=== PATIENT | male | born 1950 | race Caucasian/White ===

== ENCOUNTER 2020-05-20 10:55 | Outpatient (NON) | payer MEDICARE, OTHER, SELFPAY ==
[2020-05-23 12:26] LABS: SARS-CoV-2 RNA PCR Positive
== END 2020-05-20 10:56 ==
LOC: ANHCOVIDDT 10:56
PROVIDERS: PCP Family Medicine; Visit Provider Family Medicine
DX: U07.1 COVID-19 (principal)
CPT/HCPCS: 87635; C9803; U0003

== ENCOUNTER 2021-12-10 02:20 | Day surgery (SDC) | payer MEDICARE, SELFPAY ==
[2021-11-26 08:18] VITALS: BMI 27.2
--- NOTE | 2021-12-10 09:06 | WPDANESEPPF ---
Anes - Initial Pre Proc Eval Procedure: Operation Date: 12/10/21 10:30 Proposed Procedures p Screening Colonoscopy - Mikel Miller MD Date/Time: 12/10/21 09:06 Surgeon: Mikel Miller MD Pre Op Diagnosis: neoplasm screening Patient Data Age: 71 Gender: M Height: 1.8 m Weight: 88.6 kg Allergies Allergy/AdvReac Type Severity Reaction Status Date / Time No Known Allergies Allergy Verified 11/26/21 08:26 Home Medications Medication Instructions Recorded Confirmed Type cholecalciferol (vitamin D3) 25 1,000 unit PO DAILY 05/31/19 11/26/21 History mcg (1,000 unit) capsule sildenafil 100 mg tablet 100 mg PO DAILY PRN Erectile 06/26/20 11/26/21 History Dysfunction olmesartan 20 mg tablet See Rx Instructions .Route 09/07/21 11/26/21 Rx .COMPLEX #90 tabs verapamil 240 mg tablet,extended See Rx Instructions .Route 09/07/21 11/26/21 Rx release .COMPLEX #90 tabs Patient hx anesthesia problems: none Family hx anesthesia problems: none Results Review: All pre-operative results and documents have been reviewed as part of the pre-operative evaluation. ON LICENSE OF [facility] Past Medical History Medical History (Updated 12/10/21 @ 09:07 by Raffy López MD) Essential (primary) hypertension Hepatitis C antibody test negative (~08/07/12) History of chicken pox History of measles History of mumps Overweight Rotator cuff tear (~06/06/13) Surgical History Surgical History History of colonoscopy (~04/01/11) Family History Family History Mother , age 70 Diabetes mellitus Hypertension Family history of cardiovascular disease Cerebrovascular accident Family history of coronary artery disease Family history of congestive heart failure Sibling Hypertension Spinal stenosis Father , age 92, CHF Congestive heart failure Sibling , brothers at age 64 and 76, sisters age 81 and 66 Family history of liver disease Lymphoma Son Epilepsy Other Family history of alcoholism Family history of arthritis Social History Social History (Updated 10/03/21 @ 12:00 by Eugenia Dickerson CMA) Smoking packs per day: 1 Smoking cigarettes per day: 20.0 Years smoked: 20 Smoking pack-years: 20.00 Smoking status: Former smoker Tobacco type: cigarettes Second hand tobacco smoke exposure: No Alcohol intake: current Drinks per week: 7 Alcohol use details: one drink daily Substance use: never Substance use type: does not use Living arrangements: with family Gender identity (if verbalized by the patient): Male Spiritual care concerns: No Anes - Eval Final PreProcedure Day of Procedure 12/10/21 09:06 Patient weight: overweight Heart: regular rate and rhythm Lungs: clear to auscultation and normal air movement Airway: Mallampati scale class II Neurological: alert and oriented Last oral intake: >/= 8 hours ASA classification: II Emergent: no Anesthetic plan: proceed Anesthesia type and monitoring: general GIVS Results Review: All pre-operative results and documents have been reviewed as part of the pre-operative evaluation. Informed Consent: The patient's anesthetic plan and its attendant risks and benefits were discussed with the patient/family/POA. Questions were solicited and answers provided to the satisfaction of the patient/family/POA.
[2021-12-10 09:23] VITALS: BP 132/72; PULSE 82; RESP 18; TEMP 36.6; O2SAT 100; BMI 25.2
[2021-12-10] MEDS: LACTATED RINGERS 1,000 ML 150 ML IV CONT (09:32)
--- NOTE | 2021-12-10 09:48 | PM.IMHP ---
H&P: HPI History of Present Illness Date/Time: 12/10/21 09:48 Chief Complaint: History of colon polyp polyps. Narrative: This is a 71-year-old white male patient with a history of adenomatous colon polyp removed from the colon 10 years ago. Patient presents today for surveillance colonoscopy. Patient's current weight appetite and bowel movements are normal. He denies abdominal pain. Patient has had no bleeding. Family history is noncontributory. Patient presents today for neoplasia screening colonoscopy. Review of Systems Review of Systems: Review of systems noncontributory. [facility] Past Medical History Medical History (Updated 12/10/21 @ 09:49 by Mikel Miller MD) Essential (primary) hypertension Hepatitis C antibody test negative (~08/07/12) History of chicken pox History of measles History of mumps Overweight Rotator cuff tear (~06/06/13) Surgical History Surgical History History of colonoscopy (~04/01/11) Family History Family History Mother , age 70 Diabetes mellitus Hypertension Family history of cardiovascular disease Cerebrovascular accident Family history of coronary artery disease Family history of congestive heart failure Sibling Hypertension Spinal stenosis Father , age 92, CHF Congestive heart failure Sibling , brothers at age 64 and 76, sisters age 81 and 66 Family history of liver disease Lymphoma Son Epilepsy Other Family history of alcoholism Family history of arthritis Social History Social History (Updated 10/03/21 @ 12:00 by Eugenia Dickerson CMA) Smoking packs per day: 1 Smoking cigarettes per day: 20.0 Years smoked: 20 Smoking pack-years: 20.00 Smoking status: Former smoker Tobacco type: cigarettes Second hand tobacco smoke exposure: No Alcohol intake: current Drinks per week: 7 Alcohol use details: one drink daily Substance use: never Substance use type: does not use Living arrangements: with family Gender identity (if verbalized by the patient): Male Spiritual care concerns: No Meds Home Medications and Allergies Home Medications Medication Instructions Recorded Confirmed Type cholecalciferol (vitamin D3) 25 1,000 unit PO DAILY 05/31/19 11/26/21 History mcg (1,000 unit) capsule sildenafil 100 mg tablet 100 mg PO DAILY PRN Erectile 06/26/20 11/26/21 History Dysfunction olmesartan 20 mg tablet See Rx Instructions .Route 09/07/21 11/26/21 Rx .COMPLEX #90 tabs verapamil 240 mg tablet,extended See Rx Instructions .Route 09/07/21 11/26/21 Rx release .COMPLEX #90 tabs Allergies Allergy/AdvReac Type Severity Reaction Status Date / Time No Known Allergies Allergy Verified 11/26/21 08:26 Vital Signs Vital Signs - 24 hr 12/10/21 09:23 Temperature 97.9 F Pulse Rate 82 Respiratory Rate 18 Blood Pressure 132/72 Pulse Oximetry 100 Oxygen Delivery Room Air Exam Narrative: Physical exam reveals patient to be alert. Vital signs stable. HEENT exam is unremarkable. Patient is anicteric. Lungs are clear to auscultation and percussion. Heart is without murmur or extra sounds. Abdominal exam bowel sounds present soft nontender with no organomegaly. Digital external rectal exam is normal. Assessment and Plan Assessment and plan (1) History of colon polyps: Code(s): Z86.010 - Personal history of colonic polyps Status: Acute Assessment and Plan: Patient has a prior history of adenomatous colon polyp. Patient presents today for surveillance colonoscopy. Further recommendations will be given after endoscopy.
[2021-12-10 10:19] VITALS: BP 96/59; PULSE 67; RESP 18; O2SAT 100
[2021-12-10 10:29] VITALS: BP 94/60; PULSE 60; RESP 18; O2SAT 100
[2021-12-10 10:38] VITALS: BP 117/68; PULSE 60; RESP 18; O2SAT 100
== END 2021-12-10 10:50 | disposition home or self-care (01) ==
PROVIDERS: PCP Family Medicine; Visit Provider Internal Medicine Gastroenterology
PROC: 0DJD8ZZ Inspection of Lower Intestinal Tract, Via Natural or Artificial Opening Endoscopic (ICD-10-PCS; CPT 45378; principal; 2021-12-10 10:30)
DX: Z12.11 Encounter for screening for malignant neoplasm of colon (principal); D12.0 Benign neoplasm of cecum; D12.2 Benign neoplasm of ascending colon; K64.8 Other hemorrhoids; I10 Essential (primary) hypertension; Z87.891 Personal history of nicotine dependence
CPT/HCPCS: 45385; 88305; J7120

== ENCOUNTER 2023-02-17 03:43 | Day surgery (SDC) | payer MEDICARE, SELFPAY ==
[2023-02-04 13:28] VITALS: BMI 26.6
[2023-02-17 10:13] VITALS: BP 126/72; PULSE 64; RESP 18; TEMP 36.4; O2SAT 100
[2023-02-17] MEDS: LACTATED RINGERS 1,000 ML 150 ML IV CONT (10:15)
--- NOTE | 2023-02-17 10:29 | PM.HPGS ---
History of Present Illness History of Present Illness Consent: Risks, benefits, and alternatives have been discussed and questions answered. Patient agrees to proceed with procedure. Chief complaint: hx colon polyps Narrative: Ricco Lynne is a 73 year old male Presents for screening colonoscopy. One year ago patient was found to have a very large polyp in the cecum. This was removed piecemeal fraction. Patient presents today for follow-up examination. Patient reports that his current weight appetite and bowel movements are normal. Patient denies abdominal pain. He has had no bleeding. Family history noncontributory. Review of Systems Review of Systems: Review of systems noncontributory. [facility] Past Medical History Medical History Essential (primary) hypertension Hepatitis C antibody test negative (~08/07/12) History of chicken pox History of measles History of mumps Overweight Rotator cuff tear (~06/06/13) Surgical History Surgical History History of colonoscopy (~04/01/11) Family History Family History Mother , age 70 Diabetes mellitus Hypertension Family history of cardiovascular disease Cerebrovascular accident Family history of coronary artery disease Family history of congestive heart failure Sibling Hypertension Spinal stenosis Father , age 92, CHF Congestive heart failure Sibling , brothers at age 64 and 76, sisters age 81 and 66 Family history of liver disease Lymphoma Son Epilepsy Other Family history of alcoholism Family history of arthritis Social History Social History Social History: Caffeine-half coffee daily Smoking packs per day: 1 Smoking cigarettes per day: 20.0 Years smoked: 20 Smoking pack-years: 20.00 Smoking status: Former smoker Tobacco type: cigarettes Second hand tobacco smoke exposure: No Alcohol intake: current Drinks per week: 8 Alcohol use details: one drink daily- beer/wine Substance use: never Substance use type: does not use Lack of Transportation: No Lack of Food: Never True Current Housing: I Have Housing Concerned About Future Housing: No Difficulty Paying Gas/Electric Bills: No Difficulty Paying for Meds: No Currently Unemployed: No Education: Associate Degree Difficulty w/ Childcare or Family Care: No Living arrangements: with family Occupation/Education: retired Gender identity (if verbalized by the patient): Male Spiritual care concerns: No Agree to blood products: Yes Meds Home Medications and Allergies Home Medications Medication Instructions Recorded Confirmed Type cholecalciferol (vitamin D3) 25 1,000 unit PO DAILY 05/31/19 02/05/23 History mcg (1,000 unit) capsule olmesartan 20 mg tablet 20 mg PO DAILY #90 tabs 02/05/23 02/17/23 Rx tadalafil 10 mg tablet 10 mg PO DAILY PRN sexual activity 02/05/23 02/17/23 Rx #30 tabs verapamil 240 mg tablet,extended 240 mg PO DAILY #90 tabs 02/05/23 02/17/23 Rx release Allergies Allergy/AdvReac Type Severity Reaction Status Date / Time No Known Allergies Allergy Verified 02/17/23 10:11 Vital Signs Vital Signs - 24 hr 02/17/23 10:13 Temperature 97.6 F Pulse Rate 64 Respiratory Rate 18 Blood Pressure 126/72 Pulse Oximetry 100 Oxygen Delivery Room Air Exam Narrative: Physical exam reveals patient to be alert. Vital signs stable. HEENT exam is unremarkable. Patient anicteric. Lungs are clear to auscultation and to percussion. Heart is without murmur or extra sounds. Abdomen bowel sounds are present soft nontender with no organomegaly. Digital external rectal exam normal. Assessment and Plan Assessment and plan (1) History o
--- NOTE | 2023-02-17 11:04 | WPDANESEPPF ---
Anes - Initial Pre Proc Eval Procedure: Operation Date: 02/17/23 11:30 Proposed Procedures p Colonoscopy - Mikel Miller MD Date/Time: 02/17/23 11:04 Surgeon: Mikel Miller MD Pre Op Diagnosis: hx colon polyps Patient Data Age: 73 Gender: M Height: 1.8 m Weight: 83.7 kg Last Vital Signs Temp 97.6 F 02/17/23 10:13 Pulse 64 02/17/23 10:13 Resp 18 02/17/23 10:13 BP 126/72 02/17/23 10:13 Pulse Ox 100 02/17/23 10:13 O2 Del Method Room Air 02/17/23 10:13 Allergies Allergy/AdvReac Type Severity Reaction Status Date / Time No Known Allergies Allergy Verified 02/17/23 10:11 Home Medications Medication Instructions Recorded Confirmed Type cholecalciferol (vitamin D3) 25 1,000 unit PO DAILY 05/31/19 02/05/23 History mcg (1,000 unit) capsule olmesartan 20 mg tablet 20 mg PO DAILY #90 tabs 02/05/23 02/17/23 Rx tadalafil 10 mg tablet 10 mg PO DAILY PRN sexual activity 02/05/23 02/17/23 Rx #30 tabs verapamil 240 mg tablet,extended 240 mg PO DAILY #90 tabs 02/05/23 02/17/23 Rx release Patient hx anesthesia problems: none Family hx anesthesia problems: none Results Review: All pre-operative results and documents have been reviewed as part of the pre-operative evaluation. [facility] Past Medical History Medical History Essential (primary) hypertension Hepatitis C antibody test negative (~08/07/12) History of chicken pox History of measles History of mumps Overweight Rotator cuff tear (~06/06/13) Surgical History Surgical History History of colonoscopy (~04/01/11) Family History Family History Mother , age 70 Diabetes mellitus Hypertension Family history of cardiovascular disease Cerebrovascular accident Family history of coronary artery disease Family history of congestive heart failure Sibling Hypertension Spinal stenosis Father , age 92, CHF Congestive heart failure Sibling , brothers at age 64 and 76, sisters age 81 and 66 Family history of liver disease Lymphoma Son Epilepsy Other Family history of alcoholism Family history of arthritis Social History Social History Social History: Caffeine-half coffee daily Smoking packs per day: 1 Smoking cigarettes per day: 20.0 Years smoked: 20 Smoking pack-years: 20.00 Smoking status: Former smoker Tobacco type: cigarettes Second hand tobacco smoke exposure: No Alcohol intake: current Drinks per week: 8 Alcohol use details: one drink daily- beer/wine Substance use: never Substance use type: does not use Lack of Transportation: No Lack of Food: Never True Current Housing: I Have Housing Concerned About Future Housing: No Difficulty Paying Gas/Electric Bills: No Difficulty Paying for Meds: No Currently Unemployed: No Education: Associate Degree Difficulty w/ Childcare or Family Care: No Living arrangements: with family Occupation/Education: retired Gender identity (if verbalized by the patient): Male Spiritual care concerns: No Agree to blood products: Yes Anes - Eval Final PreProcedure Day of Procedure 02/17/23 11:04 Patient weight: normal Heart: regular rate and rhythm Lungs: clear to auscultation Airway: Mallampati scale class II Neurological: alert and oriented Last oral intake: >/= 8 hours ASA classification: II Emergent: no Anesthetic plan: proceed Anesthesia type and monitoring: general GIVS and standard monitoring Results Review: All pre-operative results and documents have been reviewed as part of the pre-operative evaluation. Informed Consent: The patient's anesthetic plan and its attendant risks and benefits were discussed with the patient/family/POA. [facility]
[2023-02-17 11:47] VITALS: BP 110/73; PULSE 76; RESP 22; O2SAT 100
[2023-02-17 11:57] VITALS: BP 115/67; PULSE 72; RESP 16; O2SAT 100
[2023-02-17 12:07] VITALS: BP 121/75; PULSE 72; RESP 21; O2SAT 98
== END 2023-02-17 12:22 | disposition home or self-care (01) ==
PROVIDERS: PCP Family Medicine; Visit Provider Internal Medicine Gastroenterology
PROC: 0DJD8ZZ Inspection of Lower Intestinal Tract, Via Natural or Artificial Opening Endoscopic (ICD-10-PCS; CPT 45378; principal; 2023-02-17 11:30)
DX: Z09 Encounter for follow-up examination after completed treatment for conditions other than malignant neoplasm (principal); D12.2 Benign neoplasm of ascending colon; K64.8 Other hemorrhoids; I10 Essential (primary) hypertension; Z87.891 Personal history of nicotine dependence
CPT/HCPCS: 45385; 88305; J2704; J7120

== ENCOUNTER 2023-08-25 17:21 | Emergency (ER) | payer MEDICARE, SELFPAY ==
--- NOTE | ~2023-08-25 | XR_ITS ---
EXAM: XR hip BI 2V w AP pelvis DATE: 08/25/2023 18:56 HISTORY: right hip pain miss stepped in the garage . COMPARISON: 12/28/2010, images only. FINDINGS: Normal mineralization. No fracture or dislocation. No lytic or blastic lesion. Moderate kiran mbar degenerative disc disease. Moderate bilateral hip osteoarthritis. No erosion or periosteal plasencia e. Soft tissues within normal limits. IMPRESSION: No acute osseous finding in the pelvis or hips. Reviewed, dictated and finalized at location K. ENTARY SCHOOL TEACHER'S AIDE
--- NOTE | ~2023-08-25 | XR_ITS ---
EXAM: XR lumbar spine 2-3V DATE: 08/25/2023 18:56 HISTORY: pain . COMPARISON: 12/28/2010. FINDINGS: 5 nonrib-bearing lumbar-type vertebral bodies. Pedicles intact. Normal vertebral body alig nment. Vertebral body heights preserved. Multilevel moderate degenerative disc disease. Multilevel mo derate-severe facet arthropathy. No fracture or dislocation. Atherosclerotic aortic calcifications wi thout evident aneurysm. IMPRESSION: No acute fracture or traumatic malalignment detected in the lumbar spine. Reviewed, dictated and finalized at location K. PING CLERK PACKING
[2023-08-25 17:56] VITALS: BP 129/57; PULSE 73; RESP 18; TEMP 36.3; O2SAT 100
--- NOTE | 2023-08-25 18:17 | ED.GENADULT ---
HPI - General Adult General Chief complaint: Back Pain/Injury <Deneen Baez November, GUARD DANCE [employer] - Last Filed: 08/25/23 18:25> Stated complaint: back pain <Deneen Baez November, [employer] - Last Filed: 08/25/23 18:25> Time Seen by Provider: 08/25/23 18:17 <Deneen Baez November, [employer] - Last Filed: 08/25/23 18:25> Focused HPI: Ricco Lynne is a 73 y/o male who presents with having right hip pain that started about 3-4 weeks ago after over doing it with walking too much and he thought it was getting better but then he missed a step today - he did not fall but the shooting pain to his right hip/buttock came back much worse. Pain does not radiate anywhere Denies any recent fall/ trauma / denies numbness tingling to his extremity Rates pain at a 8 while sitting and walking is a 9 or a 10 GENERAL: Well-appearing, well-nourished, and in no acute distress. HEAD: Normocephalic, atraumatic. CHEST: Clear to auscultation. ?No respiratory distress. HEART: Regular rate and rhythm.? NEURO: ?Alert and oriented x3. Patient screened in triage and initial orders placed.? ?Additional care and disposition to be based upon?diagnostic testing and treatment. <Deneen Baez November, [employer] - Last Filed: 08/25/23 18:25> History of Present Illness HPI narrative: Patient is a 73-year-old male here with right gluteal pain. He states that about a week ago he went for longer walk than normal. He typically walks a couple of miles a day. After this he started experiencing some pain in his right glute. He denies any back pain. He denies any radiation down his leg. He notes that he has been resting and taking naproxen throughout the week this week and had been feeling quite better today. He is able to go on his walk this morning 1-2 miles without difficulty. He then went out to the garage to empty the trash and missed a step, landing heavily on his right foot. He states that the pain was immediately worse again. He continued to be located in his right glute, nonradiating. He denies any numbness or weakness in his lower extremities. He denies any back pain. He denies any bowel or bladder incontinence. Denies any saddle anesthesia. No personal history of cancer or IVDU. He took 2 naproxen around 4:00 p.m. after the injury happened and it did not help. Pain was worse with any movement and he is having difficulty ambulating due to the pain. Patient did have imaging and was provided with Flexeril and Tylenol per triage. He notes that after receiving Flexeril he is now able to ambulate with minimal discomfort. <Alanna Loza MD - Last Filed: 08/25/23 20:46> Related Data Home medications: Home Medications Medication Instructions Recorded Confirmed cholecalciferol (vitamin D3) 25 1,000 unit PO DAILY 05/31/19 08/07/23 mcg (1,000 unit) capsule <Deneen Lyons, [employer] - Last Filed: 08/25/23 18:25> Allergies/adverse reactions: Allergies Allergy/AdvReac Type Severity Reaction Status Date / Time No Known Allergies Allergy Verified 08/25/23 17:59 <Deneen Lyons, [employer] - Last Filed: 08/25/23 18:25> Review of Systems Review of Systems: All systems reviewed & are unremarkable except as noted in HPI and below <Alanna Loza MD - Last Filed: 08/25/23 20:46> PMFSH Past Medical History Medical History: Medical History Essential (primary) hypertension Hepatitis C antibody test negative (~08/07/12) History of chicken pox History of measles History of mumps Overweight Rotator cuff tear (~06/06/13) <Deneen Lyons, [employer] - Last Filed: 08/25/23 18:25> Surgical History Surgical History: Surgical History History of colonoscopy (~04/01/11) <Deneen Lyons, [employer] - Last Filed: 08/25/23 18:25> Family History Family History: Family History Mother , age 70 Diabetes mellitus Hyper
[2023-08-25] MEDS: ACETAMINOPHEN 500 MG TABLET 1000 MG PO (18:55)
[2023-08-25] MEDS: CYCLOBENZAPRINE HCL 10 MG TABLET PO (18:56)
[2023-08-25 21:50] VITALS: BP 138/75; PULSE 55; RESP 16; O2SAT 99
== END 2023-08-25 21:51 | disposition home or self-care (01) ==
PROVIDERS: Emergency Provider Student in an Organized Health Care Education/Training Program; PCP Family Medicine
DX: S76.011A Strain of muscle, fascia and tendon of right hip, initial encounter (principal); I10 Essential (primary) hypertension; E66.3 Overweight; Z68.25 Body mass index [BMI] 25.0-25.9, adult; Z87.891 Personal history of nicotine dependence; X50.9XXA Other and unspecified overexertion or strenuous movements or postures, initial encounter
CPT/HCPCS: 72100; 73521; 99284; A9270

== ENCOUNTER 2024-08-06 12:49 | Outpatient (CLI) | payer MEDICARE, SELFPAY ==
--- NOTE | ~2024-08-06 | US_ITS ---
EXAMINATION: US thyroid DATE: 08/06/2024 14:03 INDICATION: Nontoxic single thyroid nodule. TECHNIQUE: Multiple ultrasound images of the thyroid were obtained. COMPARISON: None. FINDINGS: The right thyroid lobe measures 5.1 x 1.8 x 1.5 cm. The left thyroid lobe measures 4.4 x 1.4 x 1.7 c m. In the right thyroid lobe, there is a 12 mm solid, isoechoic, wider than tall nodule with ill-def ined margin without echogenic foci (TI-RADS TR3). IMPRESSION: 1. Small thyroid nodule, likely not clinically significant. No follow-up is needed. Reviewed, dictated and finalized at location A. RECRUITMENT IMPRESSION: 1. Small thyroid nodule, likely not clinically significant. No follow-up is nee ded.
--- NOTE | ~2024-08-06 | US_ITS ---
EXAMINATION: US carotid duplex BI DATE: 08/06/2024 14:03 INDICATION: Occlusion/stenosis of unspecified carotid artery TECHNIQUE: Grayscale, color Doppler, and pulsed Doppler images of the cervical carotid arteries were obtained. The degree of vessel stenosis is placed in one of the following categories: normal, <50%, 5 0-69%, >=70% but less than near-occlusion, near-occlusion, or total occlusion. Note that percent sten osis relative to normal distal artery lumen diameter is indirectly measured from velocity measurement s as described by Pete, et al. Radiology 2003; 229:340-346. COMPARISON: None. FINDINGS: RIGHT: The right common carotid artery (CCA) peak systolic velocity (PSV) is 87 cm/s. The right internal car otid artery (ICA) PSV is 107 cm/s. The right ICA end-diastolic velocity (EDV) is 29 cm/s. The right I CA/CCA PSV ratio is 1.2. Grayscale and color Doppler images yield an estimate of <50% diameter reduct ion from plaque in the ICA. The external carotid artery (ECA) PSV is 109 cm/s. There is antegrade luis alberto w in the right vertebral artery. LEFT: The left CCA PSV is 74 cm/s. The left ICA PSV is 74 cm/s. The left ICA EDV is 28 cm/s. The left ICA/C CA PSV ratio is 1.0. Grayscale and color Doppler images yield an estimate of <50% diameter reduction from plaque in the ICA. The ECA PSV is 102 cm/s. There is antegrade flow in the left vertebral artery . IMPRESSION: 1. <50% stenosis in the right internal carotid artery. 2. <50% stenosis in the left internal carotid artery. Reviewed, dictated and finalized at location A. QUALITY CONTROL TECHNICIAN
--- OUTSIDE RECORDS SUMMARY | 2024-08-06 12:51 | XMS_ITS | Encounter Summary ---
Author Organization [facility] Address [address] [place] [address]. [place], [place] [id number] [place] [id number] Care Team Providers Care Branch Rental Manager Name Role Phone BradfordpelonAlyssa garcia Primary Care Provider [phone] Encounter Details Date Type Department Care Team (Late st Contact Info) Description 01/16/2022 Abstract [facility] [address] Jenny Howard MA Social History Tobacco Use Types Packs/Day Years Used Date Smoking Tobacco: Former Cigarettes Q uit: 1988 Smokeless Tobacco: Never Alcohol Use Standard Drinks/Week Comments Yes 8.3 (1 standard drink = 0.6 oz p ure alcohol) Sex and Gender Information Value Date Recorded Sex Assigned at Not on file Legal Sex Male 3:28 PM CDT Gender Identity Not on file Sexual Orientation Not on file 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 No / Unsure 01/14/2022 9:51 AM CDT documented as of this encounter Plan of Treatment Not on file documented as of this encounter Procedures Procedure Name Priority Date/Time Associated Diagnosis Comments CBC (OUTSIDE LAB) Routine 07/10/2021 PROSTATE SPECIFIC ANTIGEN,TOTAL Routine 07/10/2021 COMPREHENSIVE METABOLIC PANEL Routine 07/10/2021 LIPID PANEL Routine 07/10/2021 HEMOGLOBIN, GLYCOSYLATED Routine 07/10/2021 THYROID STIM HORMONE TSH Routine 07/10/2021 documented in this encounter Results * PROSTATE SPECIFIC ANTIGEN,TOTAL (07/10/2021) PSA 0.70 07/10/2021 [facility] Abstract LABORATORY Edited Resul t - Final * THYROID STIM HORMONE, TSH (07/10/2021) TSH 1.83 07/10/2021 [facility] Edited Resul t - Final * LIPID PANEL (07/10/2021) CHOLESTEROL 142 HDL 53 TRIGLYCERIDES 91 NON HDL CHOLESTEROL 89 LDL (CALCULATED) 72 07/10/2021 [facility] LABORATORY Edited Resul t - Final * COMPREHENSIVE METABOLIC PANEL (07/10/2021) SODIUM S/P/B 141 POTASSIUM S/P/B 4.6 CO2 29 CHLORIDE S/P/B 103 GLUCOSE 75 mg/dL CALCIUM S/P/B 9.2 BUN 24 CREATININE S/P/B 1.15 0.7 - 1.3 EGFR AFR. AMER. 73 <=90 EGFR NON-AFR. AMER. 63 <=90 ALKALINE PHOSPHATASE S/P/B 44 ALT 24 AST 18 BILIRUBIN TOTAL S/P/B 0.9 ALBUMIN S/P/B 4.7 3.5 - 5.0 TOTAL PROTEIN S/P/B 7.1 GLOBULIN 2.4 07/10/2021 [facility] Final Result * HEMOGLOBIN, GLYCOSYLATED (07/10/2021) HGB A1C 5.2 % 07/10/2021 [facility] Edited Resul t - Final * CBC (OUTSIDE LAB) (07/10/2021) WBC 5.2 HGB 13.6 HCT 41.0 PLT 139 07/10/2021 [facility] Abstract LAB-OUTSIDE/ABSTRACTED Final Result documented in this encounter Visit Diagnoses Not on filedocumented in this encounter Care Teams Branch Rental Manager Relationship Specialty Start Date End Date Alyssa Nixon DO [address] [place] [address] PCP - General FAMILY PRACTICE 11/08/21 documented as of this encounter
--- OUTSIDE RECORDS SUMMARY | 2024-08-06 12:51 | XMS_ITS | Clinical Summary ---
Author Organization [facility] Address [address] [place] [address] Care Team Providers Care Manager Business Banking Name Role Phone Alyssa Nixon DO Primary Care Provider [phone] Source Comments [facility],non-owned Affiliates and Associated Physician Practices is amultiple site organization consisting of ambulatory clinics and hospital sitesin [place], [place], [place] and [place]. This disclosure is being madepursuant to the Care Everywhere program and may not contain all information available regarding this patient. Last updated 18.[facility] Allergies No known active allergies Medications * Be aware that medications may not be up to date on this document. Alwaysverify current medications with the patient. Medication Sig Dispensed Refills Start Date End Date Status olmesartan (BENICAR) 20 MG tablet 06/10/2020 Active verapamil CR (ISOPTIN-SR) 240 MG tablet 06/10/2020 Active methylPREDNISolone (MEDROL) 4 MG tabletIndications: Inflammation Take by mouth as directed Reasons: Inflammation 21 tablet 08/14/2020 Active tiZANidine (ZANAFLEX) 4 MG tabletIndications: Muscle Spasm Take 1 (one) tablet by mouth every 8 hours as needed for Muscle Spasms Reasons: Muscle Spasm 40 tablet 1 08/14/2020 Active Active Problems Problem Noted Date Diagnosed Date Abnormal levels of other serum enzymes 3 Family History Medical History Relation Name Comments Alcohol abuse Brother Status: 1 brot her of liver cirrhosis, 3 alive Liver Disease Brother cirrhosis; Sta tus: 1 brother of liver cirrhosis, 3 alive Heart Disease Father Status: Deceas ed CVA Mother Status: d Diabetes Mother Heart Disease Mother Kidney Disease Mother Liver Disease Sister fatty liver di sease in both sisters; Status: Alive Relation Name Status Comments Brother Father Mother Sister Social History Tobacco Use Types Packs/Day Years Used Date Smoking Tobacco: Former Smokeless Tobacco: Never Alcohol Use Standard Drinks/Week Comments Yes 0 (1 standard drink = 0.6 oz pur e alcohol) Sex and Gender Information Value Date Recorded Sex Assigned at Not on file Gender Identity Not on file Sexual Orientation Not on file Last Filed Vital Signs Vital Sign Reading Time Taken Comments Blood Pressure 136/82 12/07/2012 7:37 AM CDT Pulse 66 12/07/2012 7:37 AM CDT Temperature 36.8 ??C (98.3 ??F) 12/07/2012 7:37 AM CD T Respiratory Rate 20 12/07/2012 7:37 AM CDT Oxygen Saturation 100% 12/07/2012 7:37 AM CDT Inhaled Oxygen Concentration - - Weight 85.3 kg (188 lb) 09/25/2020 9:07 AM CDT Height 180.3 cm (5' 11 ) 09/25/2020 9:07 AM CDT Body Mass Index 26.22 09/25/2020 9:07 AM CDT Plan of Treatment Health Maintenance Due Date Last Done Comments COLOGUARD (AGES 45-75) - COL ON CA SCREENING 1949 COLON MONITORING 1949 COLONOSCOPY - COLON CA SCREENING 1949 CT COLONOGRAPHY - COLON CA SCREENING 1950 Colorectal Cancer Screening 1949 FIT - COLON CA SCREENING 1949 FLEX SIG - COLON CA SCREENING 1949 LIPID TESTING 1950 MEDICARE AWV ? 12 MONTHS 1950 DTAP/TDAP/TD VACCINES (1 - Tdap) 01/02/1968 PNEUMOCOCCAL VACCINE 50+ (1 of 1 - PCV) 1999 ZOSTER VACCINE (1 of 2) 1999 Respiratory Syncytial Virus (RSV) Vaccine Pt: or over 60 yrs (1 - 1-dose 75+ series) 01/02/2024 COVID-19 VACCINE ( - 2023-2 5 season) 2024 INFLUENZA VACCINE (#1) 2024 DEPRESSION SCREENING 07/07/2024 HEPATITIS C SCREENING Completed 07/07/1998 HEPATITIS B VACCINE Aged Out No longe r eligible based on patient's age to complete this topic HIB VACCINE Aged Out No longer eligi ble based on patient's age to complete this topic HPV VACCINE Aged Out No longer eligi ble based on patient's age to complete this topic MENINGOCOCCAL (Group B) VACCINE Aged Out No longer eligible based on patient's age to complete this topic MENINGOCOCCAL VACCINE Aged Out No sahil cecilia eligible based on patient's age to complete this topic Procedures Procedure Name Priority Date/Time Associated Diagnosis Comments HEPATITIS C ANTIBODY Routine 07/07/1998 12:00 AM LARD RENDERER from Last 3 Months or Most Recently Relevant to Health Maintenance Results * HEPATITIS C ANTIBODY (07/07/1998 12:00 AM LARD RENDERER) Hepatitis C Virus Antibody negative [facility] (GALIPopdust) 07/07/1998 Narrative [facility] (BEDAMI) - 07/07/1998 12:00 AM LARD RENDERER This order was created through External Result Entry Troy Damon MD LAB - CHEMISTRY FABIOLA MARVIN [facility] (TODD) from Last 3 Months or Most Recently Relevant to Health Maintenance Care Teams Manager Business Banking Relationship Specialty Start Date End Date Alyssa Nixon DO [address] [place] [address] PCP - General 12/13/21
--- OUTSIDE RECORDS SUMMARY | 2024-08-06 12:51 | XMS_ITS | Continuity of Care Document ---
Author Organization [facility] Address [address] [facility] [address] [place] [address] Phone Care Team Providers Care Training And Development Manager Name Role Phone Read OD, Mikel Unavailable Unavailable Procedures Procedure Date Eye Exam & Treatment Refraction Office/outpatient Visit, Est Corneal Pachymetry Fundus Photography W/ Report Optic Nerve Topography Oct Optic Nerve Topography Visual Field Examination(s) Eye Exam & Treatment Refraction Progressive Lens Per Lens Frames Deluxe Polarization, Any Material, Per Lens Jun Miscellaneous Vision Service - Supplies Tax - Medical Eye Exam & Treatment Eye Exam & Treatment Advance Directives Directive Yes / No Effective Date File Name No Information Encounters Encounter Description Practice Location Reason(s) For Visit Diagnoses Date Provider Providers Copied on Encounter [facility], [address] [place] [address] [address], [place], [place], [id number], [place] tel:[phone] [facility] No Information 9-201 0 Read OD Mikel. [address] , [address], [place], [address], [place]. tel:[phone] Office/outpat ient Visit, Est [facility], [address], [place], [place], [id number], [place] tel:[phone] [facility] No Information Mar-0 4-201 0 Read OD Mikel. [address] [place], [place] [address] , [address], [place], [place], [facility], . tel:[phone] Referring Provider: Mikel Read OD A, [facility] [address], [place], [place], [facility] tel:[phone] [facility], [address] [place] [address] [address], [place], [place], [id number], tel:[phone] [facility] No Information Oct-0 6-200 9 Read OD Mikel. [address] [place], [place] [address] , [address], [place], [place], [facility], . tel:[phone] Referring Provider: Mikel Read OD A, [address] [place], [place] [address], [place], [place], [facility] tel:[phone] [facility], [address] [place] [address] [address], [place], [place], [id number], tel:[phone] [facility] No Information Aug-3 1-200 9 Read OD Mikel. [address] [place], [place] [address] , [address], [place], [place], [facility], [place]. tel:[phone] Referring Provider: Mikel Read OD A, [address] [place], [place] [address], [place], [place], [facility] tel:[phone] [facility], [address], [place], [place], [id number], [place] tel:[phone] [facility] No Information Naresh-2 3-200 9 Read OD Mikel. [address] [place], [place] [address] , [address], [place], [place], [facility], [place]. tel:[phone] [facility], [address], [place], [place], [id number], tel:[phone] [facility] No Information Dec-3 0-200 8 [employer] . [address], [address], [place], [place], [address], [place]. tel:[phone] Consulting Provider: Ashley Wagner, [address], [place], [facility] tel:[phone] [facility], [address], [place], [place], [address], [place] tel:[phone] [facility] No Information Mar-0 6-200 8 Read OD Mikel. [address] [facility] [address] , [address], [place], [address], [place]. tel:[phone] [facility], [address], [place], [place], [id number], [place] tel:[phone] [facility] No Information Stefano-3 0-200 7 Read OD Mikel. [address] [facility] [address] , [address], [place], [address], [place]. tel:[phone] Family History Family Member Type Diagnosis Age At Onset No Information Payers Payer name Insurance type Covered green party ID Authorcaryna don(s) [employer] Vision Plan CI [id number] Social History Type Description Quantity Date Captured Comments Sex Male Smoking Status No Information Chief Complaint And Reason For Visit No Information Reason For Referral Reason For Referral No Information History Of Present Illness Encounter Date Complaint History Of Prese nt Illness No Information Functional Status Date Functional Assessmen t No Information Instructions Date Instruction Additional Infor mation No Information Assessments Type Assessment Date No Information Patient Care Teams Name Effective Dates (start - stop) Status Members No Information
--- OUTSIDE RECORDS SUMMARY | 2024-08-06 12:51 | XMS_ITS | Referral Summary ---
Author Organization [facility] Address [address] [facility] [place] [address] Care Team Providers Care Private Pilot Name Role Phone Alyssa Nixon DO Primary Care Provider [phone] Source Comments [facility],non-owned Affiliates and Associated Physician Practices is amultiple site organization consisting of ambulatory clinics and hospital sitesin [place], [place], [place] and [place]. This disclosure is being madepursuant to the Care Everywhere program and may not contain all information available regarding this patient. Last updated 18.[facility] Allergies No known active allergies Medications * [...] Abnormal levels of other serum enzymes 3 Social History Tobacco Use Types Packs/Day Years [...] 09/25/2020 9:07 AM CDT Plan of Treatment Not on file Procedures Procedure Name Priority Date/Time Associated Diagnosis Comments HEPATITIS C ANTIBODY Routine 07/07/1998 12:00 AM HARDWOOD FALLER from Last 3 Months or Most Recently Relevant to Health Maintenance Results * HEPATITIS C ANTIBODY (07/07/1998 12:00 AM HARDWOOD FALLER) Hepatitis C Virus Antibody negative [facility] (everyArt) 07/07/1998 Narrative [facility] (everyArt) - 07/07/1998 12:00 AM HARDWOOD FALLER This order was created through External Result Entry Troy Damon MD LAB - CHEMISTRY FABIOLA [place] Organization Address City/State/ZIP Co de Phone Number [facility]) from Last 3 Months or Most Recently Relevant to Health Maintenance Care Teams Private Pilot Relationship Specialty Start Date End Date Alyssa Nixon DO [address] [place] [address] PCP - General 12/13/21
--- OUTSIDE RECORDS SUMMARY | 2024-08-06 12:51 | XMS_ITS | Clinical Summary ---
Author Organization [facility] Address [address] [place] [address]. [place], [place] [address] [place] [address] Care Team Providers Care Heel Attacher Name Role Phone Alyssa Nixon Primary Care Provider [phone] Allergies No known active allergies Medications verapamil 240 MG ER tablet Take 240 mg by mouth daily. Active olmesartan 20 MG tablet Take 20 mg by mouth daily. Active Turmeric 500 MG Cap turmeric Active B Complex-C (SUPER B COMPLEX OR) 3x week Active Multiple Vitamin (MULTIVITAMIN ADULT OR) 4 x week Active Misc Natural Products (GLUCOSAMINE CHOND CMP DOUBLE OR) bid Active [place]-3 Fatty Acids (FISH OIL) 1200 MG Cap 2 x day Active Coenzyme Q10 (COQ-10) 100 MG Cap CR CoQ-10 Active Multiple Vitamins-Minera ls (SYSTANE ICAPS AREDS2) Cap Active Barberry-Oreg Grape-Goldensea l (BERBERINE COMPLEX OR) Active vitamin D3, cholecalciferol , 75 MCG (3000 UT) Tab tablet Take 3,000 Units by mouth daily. Active Active Problems Problem Noted Date Diagnosed Date Primary hypertension 01/14/2022 Type 2 diabetes mellitus wit h unspecified diabetic retinopathy without macular edema (CMS/HCC HHS/HCC) 01/14/2022 Palpitations 01/14/2022 Family History Medical History Relation Comments Cirrhosis Brother 1 Stomach cancer Brother 2 CHF Father Stroke Mother Lymphoma Sister 2 Relation Status Comments Brother 1 Brother 2 Father (Age 92) Mother Sister 1 Sister 2 Social History Tobacco Use Types Packs/Day Years Used Date Smoking Tobacco: Former Cigarettes Q uit: 1988 Smokeless Tobacco: Never Tobacco Cessation:Counseling Given: Not Answered Alcohol Use Standard Drinks/Week Comments Yes 8.3 [...] file Not on file Not on file Last Filed Vital Signs Vital Sign Reading Time Taken Comments Blood Pressure 120/72 01/26/2024 9:10 AM CDT Pulse 56 01/26/2024 9:10 AM CDT Temperature - - Respiratory Rate - - Oxygen Saturation 99% 01/20/2023 8:23 AM CDT Inhaled Oxygen Concentration - - Weight 85.3 kg (188 lb) 01/26/2024 9:10 AM CDT Height 180.3 cm (5' 11 ) 01/26/2024 9:10 AM CDT Body Mass Index 26.22 01/26/2024 9:10 AM CDT Plan of Treatment Health Maintenance Due Date Last Done Comments Colorectal Cancer Screening Colonoscopy (10 Years) 1949 Kidney Health Evaluation 1949 Pneumococcal Vaccine: 65+ Years (1 of 2 - PCV) 1955 Diabetes: Retinopathy Eye Exam 1967 Hepatitis C 1967 DTaP, Tdap and Td Vaccines (1 - Tdap) 01/02/1968 AAA SCREENING 2014 Annual Medicare Wellness Visit 2014 Zoster Vaccines (2 of 3) 02/28/2015 01/03/2015 Hemoglobin A1C 01/07/2022 07/10/2021 RSV Immunization or 60+ Years (1 - 1-dose 75+ series) 01/02/2024 COVID-19 Vaccine (3 - season) 2024 09/26/2020, 09/05/2020 Influenza Adult (#1) 2024 07/16/2021, 06/26/2020, 06/01/2019, Additional history exists Lipid Panel 01/04/2025 01/05/2024, 07/10/2021 Meningococcal B Vaccine Aged Out No l onger eligible based on patient's age to complete this topic Meningococcal Vaccine Aged Out No sahil cecilia eligible based on patient's age to complete this topic RSV Immunizations Under 20 Months Aged Out No longer eligible based on patient's age to complete this topic Procedures Procedure Name Priority Date/Time Associated Diagnosis Comments LIPID PANEL Routine 01/05/2024 HEMOGLOBIN, GLYCOSYLATED Routine 07/10/2021 from Last 3 Months or Most Recently Relevant to Health Maintenance Results * LIPID PANEL (01/05/2024) CHOLESTEROL 137 TRIGLYCERIDES 90 HDL 63 LDL (CALCULATED) 57 us Default History Genericprovider LABORATORY Final Result * HEMOGLOBIN, GLYCOSYLATED (07/10/2021) HGB A1C 5.2 % 07/10/2021 us Doc [facility] Abstract LABORATORY Edited Resul t - Final from Last 3 Months or Most Recently Relevant to Health Maintenance Insurance MEDICARE [email or web address] LIFE [employer] CASUALTY Care Teams Heel Attacher Relationship Specialty Start Date End Date Alyssa Nixon DO [address] [place] [address] PCP - General FAMILY PRACTICE 11/08/21
--- OUTSIDE RECORDS SUMMARY | 2024-08-06 12:51 | XMS_ITS | Encounter Summary ---
Author Organization [facility] Address [address] [place] [address]. [place], [place] [address] [place] [address] Care Team Providers Care Lower School Music Teacher Name Role Phone Alyssa Nixon Primary Care Provider Encounter Details Date Type Department Care Team (Late st Contact Info) Description 01/28/2024 Abstract [facility] [address] Jenny Howard MA Social History Tobacco Use [...] file Not on file Not on file documented as of this encounter Plan of Treatment Not on file documented as of this encounter Procedures Procedure Name Priority Date/Time Associated Diagnosis Comments COMPREHENSIVE METABOLIC PANEL Routine 01/05/2024 LIPID PANEL Routine 01/05/2024 documented in this encounter Results * COMPREHENSIVE METABOLIC PANEL (01/05/2024) SODIUM S/P/B 140 GLUCOSE 110 mg/dL AST 20 BUN 20 CREATININE S/P/B 1.01 0.7 - 1.3 CALCIUM S/P/B 9.3 POTASSIUM S/P/B 4.6 CHLORIDE S/P/B 105 ALT 23 GFR ESTIMATE 78 us Default History Genericprovider LABORATORY Final Result * LIPID PANEL (01/05/2024) CHOLESTEROL 137 TRIGLYCERIDES 90 HDL 63 LDL (CALCULATED) 57 us Default History Genericprovider LABORATORY Final Result documented in this encounter Visit Diagnoses Not on filedocumented in this encounter Care Teams Lower School Music Teacher Relationship Specialty Start Date End Date Alyssa Nixon DO [address] [place] [address] PCP - General FAMILY PRACTICE 11/08/21 documented as of this encounter
--- OUTSIDE RECORDS SUMMARY | 2024-08-06 12:51 | XMS_ITS | Patient Health Summary ---
Author Organization [facility] Address [address] [place] [address] Care Team Providers Care Analyst [employer] Name Role Phone Alyssa Nixon DO Primary Care Provider [phone] Note from [facility],non-owned Affiliates and Associated Physician Practices is amultiple site organization consisting of ambulatory clinics and hospital sitesin [place], [place], [place] and [place]. This disclosure is being madepursuant to the Care Everywhere program and may not contain all information available regarding this patient. Last updated 18.[facility] Allergies No known active allergies Medications * Be aware that medications may not be up to date on this document. Alwaysverify current medications with the patient. * olmesartan (BENICAR) 20 MG tablet(Started 06/10/2020) * verapamil CR (ISOPTIN-SR) 240 MG tablet(Started 06/10/2020) * methylPREDNISolone (MEDROL) 4 MG tablet(Started 08/14/2020) Take by mouth as directed Reasons: Inflammation * tiZANidine (ZANAFLEX) 4 MG tablet(Started 08/14/2020) Take 1 (one) tablet by mouth every 8 hours as needed for Muscle Spasms Reasons: Muscle Spasm 1 refill by 08/14/2021 Active Problems Problem Noted Date Diagnosed Date [...] Mass Index 26.22 09/25/2020 9:07 AM CDT Procedures * MRI CERVICAL SPINE WO CONTRAST(Performed 09/27/2020) Performed for Neck pain, DDD (degenerative disc disease), cervical, Cervical radicular pain, Complete tear of left rotator cuff, unspecified whether traumatic * XR CERVICAL SPINE 2 OR 3VW(Performed 08/14/2020) Performed for Neck pain * MRI SHOULDER LEFT WO CONTRAST(Performed 08/10/2020) Performed for Chronic left shoulder pain * XR SHOULDER LEFT 2VW OR MORE(Performed 07/31/2020) Performed for Chronic left shoulder pain * FERRITIN(Performed 10/05/2012) * IRON BLOOD(Performed 10/05/2012) * TRANSFERRIN(Performed 10/05/2012) * COMPREHENSIVE METABOLIC PANEL(Performed 10/05/2012) * CBC W AUTO DIFFERENTIAL(Performed 10/05/2012) * CERULOPLASMIN(Performed 07/07/1998) * FERRITIN(Performed 07/07/1998) * ADRIANNE BLOOD SCREEN(Performed 07/07/1998) * HEPATITIS C ANTIBODY(Performed 07/07/1998) * HEPATITIS B SURFACE ANTIBODY(Performed 07/07/1998) * ALPHA FETOPROTEIN BLOOD TUMOR MARKER(Performed 07/07/1998) * [id number] BLOOD PHENOTYPING PANEL(Performed 07/07/1998) * HEPATITIS A IGM ANTIBODY(Performed 07/07/1998) * SMOOTH MUSCLE ANTIBODY(Performed 07/07/1998) * PT-INR SLH(Performed 07/07/1998) * TRANSFERRIN(Performed 07/07/1998) * IRON + TIBC PANEL(Performed 07/07/1998) * HEPATITIS BE PANEL(Performed 07/07/1998) * [id number] MUTATION ANALYSIS PANEL(Performed 07/07/1998) * CBC W AUTO DIFFERENTIAL(Performed 07/07/1998) * COMPREHENSIVE METABOLIC PANEL(Performed 07/07/1998) Results * MRI CERVICAL SPINE WO CONTRAST (09/27/2020 9:23 AM CDT) Anatomical Region Laterality Modality Pelvis Magnetic Resonan ce 09/27/2020 10:3 3 AM CDT Impressions 09/27/2020 12:39 PM CDT Tiny area of intrinsic cord signal abnormality to the right of midline at C6-7. This is likely a remote post compressive area of myelomalacia. Cervical spondylitic changes with multilevel spinal canal stenoses. Canal stenosis more severe at C5-6 and C6-7. Mild central canal narrowing C3-4. Edited by Shelby Clement on 09/27/2020 10:53 AM *Reading Radiologist: Darek Woo on 09/27/2020 at 12:39 PM Narrative 09/27/2020 12:39 PM CDT MRI CERVICAL SPINE WITHOUT CONTRAST INDICATION: Neck pain, cervical radiculopathy, 70-year-old male. TECHNIQUE: Multisequence, multiplanar MRI sequences of the cervical spine without contrast. FINDINGS: Comparison cervical spine plain film examination August 14, 2020. The craniocervical junction is normal. There is increased signal intensity in the cord to the right of midline posterior to the C6-7 level. No other intrinsic cord signal abnormality. There is no diffuse marrow replacing process. No facet joint edema. C2-3: Ankylosis across the left C2-3 facet joint. No central or foraminal stenosis. Normal flow void within both vertebral arteries. C3-4: Facet spurring, left greater than right. Posterior disc bulging extends back centrally as a protrusion 2.5 mm. This does result in ventral cord flattening with mid sagittal diameter narrowed to a mild to moderate 8.1 mm. In addition, the left C4 foraminal stenosis is moderate secondary to a combination of uncovertebral joint spurs and facet joint spurs. C4-5: Degenerative fusion. The C5 foramen are both patent. C5-6: There is a central and right paramedian bulge spur complex. The central canal caliber narrows to a moderate to severe 6.3 mm. The left C6 foraminal stenosis is moderate, the right is moderate to severe. C6-7: There is a right paramedian protrusion extending beyond the endplate spurs. This projects back 3 mm resulting in right ventral cord flattening. The mid sagittal diameter of the spinal canal narrows down to a moderate 7.5 mm. Mild left and severe right C7 foraminal stenosis. Right ventral cord flattening just cephalad to the area of slight increased cord signal intensity. C7-T1: Facet arthropathy, left greater than right. No other upper thoracic cord signal abnormality. No discrete thyroid mass lesion. No jugular adenopathy. Procedure Note Darek Woo MD - 09/27/2020 MRI CERVICAL SPINE WITHOUT CONTRAST INDICATION: Neck pain, cervical radiculopathy, 70-year-old male. TECHNIQUE: Multisequence, multiplanar MRI sequences of the cervical spine without contrast. FINDINGS: Comparison cervical spine plain film examination August 14, 2020. The craniocervical junction is normal. There is increased signal intensity in the cord to the right of midline posterior to the C6-7 level. No other intrinsic cord signal abnormality. There is no diffuse marrow replacing process. No facet joint edema. C2-3: Ankylosis across the left C2-3 facet joint. No central or foraminal stenosis. Normal flow void within both vertebral arteries. C3-4: Facet spurring, left greater than right. Posterior disc bulging extends back centrally as a protrusion 2.5 mm. This does result in ventral cord flattening with mid sagittal diameter narrowed to a mild to moderate 8.1 mm. In addition, the left C4 foraminal stenosis is moderate secondary to a combination of uncovertebral joint spurs and facet joint spurs. C4-5: Degenerative fusion. The C5 foramen are both patent. C5-6: There is a central and right paramedian bulge spur complex. The central canal caliber narrows to a moderate to severe 6.3 mm. The left C6 foraminal stenosis is moderate, the right is moderate to severe. C6-7: There is a right paramedian protrusion extending beyond the endplate spurs. This projects back 3 mm resulting in right ventral cord flattening. The mid sagittal diameter of the spinal canal narrows down to a moderate 7.5 mm. Mild left and severe right C7 foraminal stenosis. Right ventral cord flattening just cephalad to the area of slight increased cord signal intensity. C7-T1: Facet arthropathy, left greater than right. No other upper thoracic cord signal abnormality. No discrete thyroid mass lesion. No jugular adenopathy. IMPRESSION Tiny area of intrinsic cord signal abnormality to the right of midline at C6-7. This is likely a remote post compressive area of myelomalacia. Cervical spondylitic changes with multilevel spinal canal stenoses. Canal stenosis more severe at C5-6 and C6-7. Mild central canal narrowing C3-4. Edited by Shelby Clement on 09/27/2020 10:53 AM *Reading Radiologist: Darek Woo on 09/27/2020 at 12:39 PM Jolene Mack MD MR ORDERABLES * XR CERVICAL SPINE 2 OR 3VW (08/14/2020 8:18 AM POLE LIFT OPERATOR) Anatomical Region Laterality Modality Spine Computed Radiogr aphy Narrative 08/14/2020 8:18 AM POLE LIFT OPERATOR Jenae Noonan, RT(R) ? 08/14/2020 12:01 PM Three views of the left shoulder(s) obtained 07/31/2020 ?? including AP, axillary lateral and outlet radiographs reveal preserved glenohumeral and preserved acromiohumeral distance with a Type 2 acromion. No bony abnormalities are otherwise noted. ?? X-rays taken including two views of the cervical spine dated 08/14/2020 reveal loss of the lordotic curve. ??Degenerative disc disease and arthritic changes at multiple levels. ??Worse at C5-C6 and C6-C7. ??Anterior osteophytes are noted. ?? The MRI of the left shoulder was reviewed. ??This reveals a focal full-thickness rotator cuff tear supraspinatus tendon. ??Mild chondromalacia is also present. Sonali Womack PA-C DIAGNOSTIC IMAGING O RDERABLES * MRI SHOULDER LEFT WO CONTRAST (08/10/2020 9:47 AM POLE LIFT OPERATOR) Anatomical Region Laterality Modality Upper Extremity Magnetic Resonan ce 08/10/2020 4:46 PM POLE LIFT OPERATOR Impressions 08/10/2020 4:54 PM POLE LIFT OPERATOR Supraspinatus tendinitis/tendinosis with superimposed small full-thickness but nonretracted tear at the insertional footplate anteriorly Tiny joint effusion and subacromial/subdeltoid bursal effusion Chronic degradation of the cartilaginous labrum with superimposed small superior labral tear *Reading Radiologist: Hany Fisher on 08/10/2020 at 4:54 PM Narrative 08/10/2020 4:54 PM POLE LIFT OPERATOR MRI LEFT SHOULDER WITHOUT CONTRAST Indication: Left shoulder pain Technique: Multiplanar, multisequence magnetic resonance imaging of the left shoulder performed without contrast Comparison: None Findings: There is no fracture or dislocation. There is no marrow infiltrative process. Minor hypertrophic/edematous changes are present at the acromioclavicular joint. There is glenohumeral joint space narrowing and chondromalacia. There is a tiny joint effusion and tiny subacromial/subdeltoid bursal effusion. There is supraspinatus tendinitis/tendinosis with superimposed small, full-thickness but nonretracted tear involving the anterior aspect of the distal supraspinatus tendon near its insertion. There is chronic tendinitis/tendinosis involving the distal infraspinatus and subscapularis tendons. The long head of the biceps tendon is appropriately positioned in the bicipital groove and is normal in size and signal. There is chronic degradation of the cartilaginous labrum with superimposed small irregular superior labral tear. Procedure Note Hany Fisher MD - 08/10/2020 MRI LEFT SHOULDER WITHOUT CONTRAST Indication: Left shoulder pain Technique: Multiplanar, multisequence magnetic resonance imaging of the left shoulder performed without contrast Comparison: None Findings: There is no fracture or dislocation. There is no marrow infiltrative process. Minor hypertrophic/edematous changes are present at the acromioclavicular joint. There is glenohumeral joint space narrowing and chondromalacia. There is a tiny joint effusion and tiny subacromial/subdeltoid bursal effusion. There is supraspinatus tendinitis/tendinosis with superimposed small, full-thickness but nonretracted tear involving the anterior aspect of the distal supraspinatus tendon near its insertion. There is chronic tendinitis/tendinosis involving the distal infraspinatus and subscapularis tendons. The long head of the biceps tendon is appropriately positioned in the bicipital groove and is normal in size and signal. There is chronic degradation of the cartilaginous labrum with superimposed small irregular superior labral tear. IMPRESSION Supraspinatus tendinitis/tendinosis with superimposed small full-thickness but nonretracted tear at the insertional footplate anteriorly Tiny joint effusion and subacromial/subdeltoid bursal effusion Chronic degradation of the cartilaginous labrum with superimposed small superior labral tear *Reading Radiologist: Hany Fisher on 08/10/2020 at 4:54 PM Jolene Mack MD MR ORDERABLES * XR SHOULDER LEFT 2VW OR MORE (07/31/2020 9:02 AM POLE LIFT OPERATOR) Anatomical Region Laterality Modality Upper Extremity Computed Radiogr aphy Narrative 07/31/2020 9:10 AM POLE LIFT OPERATOR Rosaura Justice ? 07/31/2020 ??2:09 PM Three views of the left shoulder(s) obtained 07/31/2020 ?? including AP, axillary lateral and outlet radiographs reveal preserved glenohumeral and preserved acromiohumeral distance with a Type 2 acromion. No bony abnormalities are otherwise noted. Jolene Mack MD DIAGNOSTIC IMAGING ORDERABLES * TRANSFERRIN (10/05/2012 9:58 AM CDT) Only the most recent of2 resultswithin the time period is included. Transferrin 262 174 - 382 mg/dL [facility] Transferrin Saturation % 42 16 - 50 % [facility] 10/05/2012 9:58 AM CDT 10/05/2012 10:27 AM CDT Troy Damon MD LAB - CHEMISTRY FABIOLA MARVIN [address] [phone] * (ABNORMAL) CBC W AUTO DIFFERENTIAL (10/05/2012 9:58 AM CDT) Only the most recent of2 resultswithin the time period is included. WBC 5.5 3.5 - 10.5 10^3/uL [facility] RBC 4.92 4.30 - 5.70 10^6/uL [facility] Hemoglobin 14.4 13.5 - 17.5 g/dL [facility] Hematocrit 42.2 39.0 - 50.0 % [facility] MCV 85.8 81.0 - 97.0 FL [facility] MCH 29.3 28.0 - 34.0 PG [facility] MCHC 34.1 32.0 - 36.0 G/DL [facility] Platelet 145(L) 150 - 400 10^3/uL [facility] RDW 12.8 11.2 - 14.8 % [facility] RDW-SD 40.3 36 - 50 FL [facility] MPV 11.2 9.3 - 12.8 FL [facility] Neutrophils % 52.0 35.0 - 70.0 % [facility] Lymphocytes % 36.3 19.7 - 55.1 % [facility] Monocytes % 8.2 3 - 15 % [facility] Eosinophils % 3.3 0.0 - 6.0 % [facility] Basophils % 0.2 0.0 - 1.5 % [facility] Neutrophils Absolute 2.9 1.7 - 7.0 10^3/uL [facility] Lymphocyte Absolute 2.0 0.8 - 2.9 10^3/uL [facility] Monocytes Absolute 0.5 0.14 - 0.66 10^3/uL [facility] Eosinophils Absolute 0.18 0.00 - 0.22 10^3/uL [facility] Basophils Absolute 0.01(L) 0.02 - 0.06 10^3/uL [facility] Differential Type AUTO DIFFERENTIAL [facility] Venous blood specimen (specimen) 10/05/2012 9:58 AM CDT 10/05/2012 10:27 AM CDT Troy Damon MD LAB - HEMATOLOGY ORD ERABLES [facility] [address] [phone] * (ABNORMAL) COMPREHENSIVE METABOLIC PANEL (10/05/2012 9:58 AM CDT) Only the most recent of2 resultswithin the time period is included. BUN 17 7 - 26 mg/dL [facility] Creatinine 1.0 0.6 - 1.2 mg/dL [facility] eGFR by MDRD > 60 ML/MIN [facility] Comment: Chronic kidney disease: ??<60 ml/min Kidney failure: ?<15 ml/min Based on BSA of 1.73m2. Sodium 140 136 - 145 mmol/L [facility] Potassium 4.7(H) 3.5 - 4.5 mmol/L [facility] Chloride 105 98 - 107 mmol/L [facility] CO2 23 22 - 29 mmol/L [facility] Glucose 93 70 - 115 mg/dL [facility] Calcium 10.1 8.4 - 10.2 mg/dL [facility] Protein Total 8.0 6.0 - 8.3 g/dL [facility] Albumin 4.2 3.4 - 5.0 g/dL [facility] Bilirubin Total 0.7 0.2 - 1.2 mg/dL [facility] Alkaline Phosphatase 56 40 - 150 Units/L [facility] ALT 56(H) 0 - 55 Units/L [facility] AST 38(H) 5 - 34 Units/L [facility] Anion Gap 17 8 - 18 [facility] BUN/Creatinine Ratio 17 7 - 23 [facility] Osmolality Calculation 276 270 - 300 mOsm/kg [facility] Albumin/Globulin Ratio 1.1 1.1 - 2.3 [facility] Serum 10/05/2012 9:58 AM CDT 10/05/2012 10:27 AM CDT Troy Damon MD LAB - CHEMISTRY FABIOLA Putnam Organization Address City/State/ZIP Co de Phone Number [address] [phone] * IRON BLOOD (10/05/2012 9:58 AM CDT) Iron 137 50 - 175 mcg/dL [facility] Serum 10/05/2012 9:58 AM CDT 10/05/2012 10:27 AM CDT Troy Damon MD LAB - CHEMISTRY FABIOLA MARVIN Performing Organization Address [facility]/ZIP Co de Phone Number [address] [phone] * (ABNORMAL) FERRITIN (10/05/2012 9:58 AM CDT) Only the most recent of2 resultswithin the time period is included. Ferritin 287(H) 22 - 275 ng/mL [facility] Venous blood specimen (specimen) 10/05/2012 9:58 AM CDT 10/05/2012 10:27 AM CDT Troy Damon MD LAB - CHEMISTRY FABIOLA MARVIN Performing Organization Address [facility] Co de Phone Number [address] [phone] * PT-INR [facility] (07/07/1998 12:00 AM POLE LIFT OPERATOR) PT 11.4 [facility] (BEAKER) INR 1.1 [facility] (BEAKER) Plasma specimen (specimen) 07/07/1998 Narrative [facility] (BEAKER) - 07/07/1998 12:00 AM POLE LIFT OPERATOR This order was created through External Result Entry Troy Damon MD LAB - COAGULATION OR DERABLES Performing Organization Address [facility]/ZIP Co de Phone Number [facility] (BEAKER) * ADRIANNE BLOOD SCREEN (07/07/1998 12:00 AM POLE LIFT OPERATOR) ADRIANNE Direct negative [facility] (BEAKER) Venous blood specimen (specimen) 07/07/1998 Narrative [facility] (BEAKER) - 07/07/1998 12:00 AM POLE LIFT OPERATOR This order was created through External Result Entry Troy Damon MD LAB - CHEMISTRY FABIOLA MARVIN Performing Organization Address [facility] Co de Phone Number [facility] * HEPATITIS BE PANEL (07/07/1998 12:00 AM POLE LIFT OPERATOR) Hepatitis Be Antigen negative [facility] Hepatitis B Virus Surface Antibody 0.11 [facility] Hepatitis Be Virus Antigen negative [facility] Hepatitis B Core Virus Antibody Total negative [facility] Hepatitis B Core Virus Antibody IgM negative [facility] 07/07/1998 Narrative [facility] - 07/07/1998 12:00 AM POLE LIFT OPERATOR This order was created through External Result Entry Troy Damon MD LAB - CHEMISTRY FABIOLA MARVIN Performing Organization Address [facility] Co de Phone Number [facility] * [id number] MUTATION ANALYSIS PANEL (07/07/1998 12:00 AM POLE LIFT OPERATOR) Syayd-1-Gbvaer ypsin 171 [facility] (BEAKER) Fnftt-2-Emltim ypsin Phenotype s allele [facility] (BEAKER) Comment:not detected Czkxv-1-Lrsedx ypsin Phenotype z allele [facility] (BEAKER) Comment:not detected 07/07/1998 Narrative [facility] (BEAKER) - 07/07/1998 12:00 AM POLE LIFT OPERATOR This order was created through External Result Entry Troy Damon MD LAB - CHEMISTRY FABIOLA MARVIN Performing Organization Address [facility] Co de Phone Number [facility] (BEAKER) * [id number] BLOOD PHENOTYPING PANEL (07/07/1998 12:00 AM POLE LIFT OPERATOR) Syksh-5-Gmhhthr psin Phenotype 135 [facility] (BEAKER) Phenotype MM [facility] (BEAKER) 07/07/1998 Narrative [facility] (BEAKER) - 07/07/1998 12:00 AM POLE LIFT OPERATOR This order was created through External Result Entry Troy Damon MD LAB - CHEMISTRY FABIOLA MARVIN [facility] (BEAKER) * CERULOPLASMIN (07/07/1998 12:00 AM POLE LIFT OPERATOR) Ceruloplasmin 23.6 [facility] (BEAKER) 07/07/1998 Narrative [facility] (BEAKER) - 07/07/1998 12:00 AM POLE LIFT OPERATOR This order was created through External Result Entry Troy Damon MD LAB - CHEMISTRY FABIOLA MARVIN [facility] (BEAKER) * ALPHA FETOPROTEIN BLOOD TUMOR (07/07/1998 12:00 AM POLE LIFT OPERATOR) Alpha-Fetoprote in 3.0 [facility] (BEAKER) 07/07/1998 Narrative [facility] (BEAKER) - 07/07/1998 12:00 AM POLE LIFT OPERATOR This order was created through External Result Entry Troy Damon MD LAB - CHEMISTRY FABIOLA MARVIN Performing Organization Address City/[facility]/ZIP Co de Phone Number [facility] (BEAKER) * SMOOTH MUSCLE ANTIBODY (07/07/1998 12:00 AM POLE LIFT OPERATOR) Actin (Smooth Muscle) Antibody 8 [facility] (BEAKER) Mitochondrial M2 Antibody <20.0 [facility] (BEAKER) 07/07/1998 Narrative [facility] (BEAKER) - 07/07/1998 12:00 AM POLE LIFT OPERATOR This order was created through External Result Entry Troy Damon MD LAB - SEROLOGY ORDER PAT [facility] (BEAKER) * IRON + TIBC PANEL (07/07/1998 12:00 AM POLE LIFT OPERATOR) TIBC 288 [facility] (BEAKER) UIBC 121 [facility] (BEAKER) Iron 167 [facility] (BEAKER) Iron % Saturation 58 [facility] (BEAKER) Serum 07/07/1998 Narrative [facility] (BEAKER) - 07/07/1998 12:00 AM POLE LIFT OPERATOR This order was created through External Result Entry Troy Damon MD LAB - CHEMISTRY FABIOLA MARVIN Performing Organization Address City/[facility]/ZIP Co de Phone Number [facility] (BEAKER) * HEPATITIS B SURFACE ANTIBODY (07/07/1998 12:00 AM POLE LIFT OPERATOR) Hepatitis B Virus Surface Antibody <0.1 [facility] (BEAKER) Venous blood specimen (specimen) 07/07/1998 Narrative [facility] (BEAKER) - 07/07/1998 12:00 AM POLE LIFT OPERATOR This order was created through External Result Entry Troy Damon MD LAB - CHEMISTRY FABIOLA MARVIN Performing Organization Address [facility] Co de Phone Number [facility] (BEAKER) * HEPATITIS C ANTIBODY (07/07/1998 12:00 AM POLE LIFT OPERATOR) Hepatitis C Virus Antibody negative [facility] (BEAKER) 07/07/1998 Narrative [facility] (BEAKER) - 07/07/1998 12:00 AM POLE LIFT OPERATOR This order was created through External Result Entry Troy Damon MD LAB - CHEMISTRY FABIOLA MARVIN Performing Organization Address City/[facility]/ZIP Co de Phone Number [facility] (BEAKER) * HEPATITIS A IGM ANTIBODY (07/07/1998 12:00 AM POLE LIFT OPERATOR) Hepatitis A Virus Antibody IgM negative [facility] (BEAKER) 07/07/1998 Narrative [facility] (BEAKER) - 07/07/1998 12:00 AM POLE LIFT OPERATOR This order was created through External Result Entry Troy Damon MD LAB - CHEMISTRY FABIOLA MARVIN [facility] ([place]) Care Teams Analyst [employer] Relationship Specialty Start Date End Date Alyssa Nixon DO [address] [place] [address] PCP - General 12/13/21
== END 2024-08-06 12:50 | disposition home or self-care (01) ==
PROVIDERS: PCP Family Medicine; Visit Provider Nurse Practitioner
DX: E04.1 Nontoxic single thyroid nodule (principal); I65.23 Occlusion and stenosis of bilateral carotid arteries
CPT/HCPCS: 76536; 93880